=== PATIENT | female | born 1955 | race Caucasian/White ===

== ENCOUNTER → 2016-07-11 | Outpatient (CLI) | payer BC ==
--- NOTE | 2016-07-11 09:48 | CR ---
EXAMINATION: Two-view chest (PA and Lateral views). HISTORY: COPD. FINDINGS: The trachea is midline. The cardiomediastinal silhouette is within normal limits. No pulmonary infil trates, effusions or pneumothorax. There is a calcified granuloma within the left apex. There is mod erate hyperinflation and bibasilar scarring. Osseous structures appear unremarkable. IMPRESSION: No acute cardiopulmonary process.
== END | disposition home or self-care (01) ==
LOC: MW.CHFP 08:32
PROVIDERS: ATTEND Emergency Medicine
DX: J44.9 Chronic obstructive pulmonary disease, unspecified (principal); R31.9 Hematuria, unspecified
CPT/HCPCS: 71020; 71020-26; 81001

== ENCOUNTER → 2016-07-18 | Outpatient (CLI) | payer BC ==
[~2016-07-18] MED LIST: Iopamidol 755 MG/ML 500 ML Multipack Bottle IVPUSH STA
--- NOTE | 2016-07-18 11:56 | CT ---
CT of the abdomen and pelvis with contrast. HISTORY: Disorders of kidney TECHNIQUE: Axial CT images were obtained of the abdomen and pelvis following administration of 80 mL of Isovue-370 in the left ventricular fossa without complication. Coronal and sagittal reconstructi ons obtained. Comparison: CT dated 10/25/2013. FINDINGS: There is a spiculated 1.3 cm soft tissue nodule within the right lung base identified. This previous ly measured 0.8 x 0.6 cm. The liver, spleen, and pancreas appear normal. There is minimal nodular thickening of the left adren al gland. The gallbladder appears normal. There is no bulky retroperitoneal lymphadenopathy or abdom inal ascites. The kidneys enhance and function symmetrically without evidence of obstructive uropathy. There is a 1 x 1.4 cm nodule along the medial aspect of the left kidney, grossly unchanged in size and appearan ce. 3 mm nonobstructing stone within the midpole of the left kidney. The large and small bowel are normal in caliber without evidence of obstruction. No pericolonic infl ammation or stranding. Appendectomy. The urinary bladder appears normal. There is trace free sacral fluid, unchanged. Hysterectomy. No bulky pelvic lymphadenopathy. No suspicious osseous abnormalities identified. IMPRESSION: 1. There is an enlarging suspicious 1.3 cm spiculated soft tissue nodule within the right lower lobe . Tissue sampling is recommended. 2. Small nonobstructing left renal stone. 3. Stable soft tissue nodule within the mid pole of the left kidney.
== END ==
LOC: MW.DI 09:33
PROVIDERS: ATTEND Emergency Medicine
DX: N28.89 Other specified disorders of kidney and ureter (principal); N20.0 Calculus of kidney
CPT/HCPCS: 74177; Q9967

== ENCOUNTER 2017-04-20 12:24 | Inpatient (IN) | payer BC ==
[2017-04-20] MEDS ORDERED: Albuterol/Ipratropium 3.0-0.5 MG/3 ML Neb Soln NEB ONE ×3 (12:37→12:45)
[2017-04-20] MEDS ORDERED: methylPREDNISolone Sodium Succinate 125 MG/2 ML SDV IVPUSH ONE (12:37)
[2017-04-20] MEDS ORDERED: Sodium Chloride 0.9% 2.5 ML Syringe FLUSH PRN (12:38)
[2017-04-20] MEDS ORDERED: Sodium Chloride 0.9% 10 ML Syringe FLUSH PRN (12:38)
--- NOTE | 2017-04-20 12:45 | EDM.PDOC ---
ED HPI GENERAL MEDICAL PROBLEM - General Chief Complaint: Respiratory Problem Stated Complaint: HARD TIME BREATHING Time Seen by Provider: 04/20/17 12:34 Source of Information: Reports: Patient History Limitations: Reports: No Limitations - History of Present Illness INITIAL COMMENTS - FREE TEXT/NARRATIVE: History of present illness: []Patient has been short of breath since last night home O2. Shortness of breath is worsening she is unable to manage at home. Patient denies any fevers, chills has a chronic cough. Diagnosed with lung cancer and has had 4 rounds of chemotherapy. She has no history of blood clots in the past. Review of systems: As per history of present illness and below otherwise all systems reviewed and negative. Past medical history: As per history of present illness and as reviewed below otherwise noncontributory. Surgical history: As per history of present illness and as reviewed below otherwise noncontributory. Social history: No reported history of drug or alcohol abuse. Family history: As per history of present illness and as reviewed below otherwise noncontributory. Physical exam: General: Well developed, well nourished in mild respiratory distress HEENT: Atraumatic, normocephalic, pupils reactive, negative for conjunctival pallor or scleral icterus, mucous membranes moist, throat clear, neck supple, nontender, trachea midline. Lungs: Decreased breath sounds bilaterally Heart: S1S2, regular, negative for clicks, rubs, or JVD. Abdomen: Soft, nondistended, nontender. Negative for masses or hepatosplenomegaly. Negative for costovertebral tenderness. Pelvis: Stable nontender. Genitourinary: Deferred. Rectal: Deferred. Extremities: Atraumatic, negative for cords or calf pain. Neurovascular unremarkable. Neuro: Awake, alert, oriented. Cranial nerves II through XII unremarkable. Cerebellum unremarkable. Motor and sensory unremarkable throughout. Exam nonfocal. Diagnostics: []Chest x-ray shows COPD, CT chest negative for PE right middle lobe nodules, right middle lobe infiltrate and severe emphysema noted. Troponin and labs are negative Therapeutics: []Patient was given several nebs in the ED and Solu-Medrol and 10 year to have some difficulty breathing. Since vital signs remained stable. Impression: []COPD exacerbation, lung cancer, possible early pneumonia given labs are normal at this time Plan: []Admit for breathing treatments and observation Definitive disposition and diagnosis as appropriate pending reevaluation and review of above. right ribs Pain Score (Numeric/FACES): 5 - Related Data Allergies Allergy/AdvReac Type Severity Reaction Status Date / Time codeine Allergy Anaphylactic Verified 04/20/17 13:07 Shock Home Meds: Home Meds Cetirizine HCl [Zyrtec] 10 mg PO DAILY 08/02/13 [History] Albuterol Sulfate [Albuterol Sulfate] 0.083 ml PO DAILY 04/20/17 [History] Albuterol [Ventolin HFA] 108 mg PO DAILY 04/20/17 [History] Budesonide/Formoterol [Symbicort 160-4.5 MCG] 10.2 gm INH DAILY 04/20/17 [ History] Umeclidinium [place] [Incruse Ellipta*] 62.5 ml PO DAILY 04/20/17 [History] Social & Family History - Tobacco Use Years of Tobacco use: 45 - Alcohol Use Days Per Week of Alcohol Use: 0 - Recreational Drug Use Recreational Drug Use: No ED ROS GENERAL - Review of Systems Review Of Systems: See Below (See history of present illness) ED EXAM, GENERAL - Physical Exam Exam: See Below (See history of present illness) Course - Vital Signs Last Recorded V/S: Last Vital Signs Temp 98.7 F 04/20/17 15:31 Pulse 103 H 04/20/17 15:31 Resp 20 04/20/17 15:31 BP 148/91 H 04/20/17 15:31 Pulse Ox 98 04/20/17 15:31 - Orders/Labs/Meds Orders: Active Orders 24 hr Category Date Time Status EKG Documentation Completion [RC] STAT Care 04/20/17 12:38 Active RT Aerosol Therapy [RC] ASDIRECTED Care 04/20/17 12:37 Active RT Aerosol Therapy [RC] ASDIRECTED Care 04/20/17 12:44 Active RT Aerosol Therapy [RC] ASDIRECTED Care 04/20/17 12:45 Active Ang Chest [CT] Stat Exams 04/20/17 13:51 Taken Chest 1V Frontal [CR] Stat Exams 04/20/17 12:38 Taken CULTURE BLOOD [BC] Stat Lab 04/20/17 13:36 Received CULTURE BLOOD [BC] Stat Lab 04/20/17 13:47 Received Sodium Chloride 0.9% [Saline Flush] Med 04/20/17 12:38 Active 10 ml FLUSH ASDIRECTED PRN Sodium Chloride 0.9% [Saline Flush] Med 04/20/17 12:38 Active 2.5 ml FLUSH ASDIRECTED PRN Blood Culture x2 Reflex Set [OM.PC] Stat Ot 04/20/17 13:23 Ordered Saline Lock Insert [OM.PC] Stat Ot 04/20/17 12:38 Ordered Medication Orders Acetaminophen (Tylenol) 650 mg PO Q4H PRN PRN Reason: Pain (Mild 1-3)/fever Albuterol/Ipratropium (Duoneb 3.0-0.5 Mg/3 Ml) 3 ml NEB Q4HRRT PRN PRN Reason: Shortness Of Breath/wheezing Heparin Sodium (Porcine) (Heparin Sodium) 5,000 units SUBCUT Q12H [facility] Last Admin: 04/20/17 16:04 Dose: 5,000 units Lactated Ringer's (Ringers, Lactated) 1,000 mls @ 125 mls/hr IV ASDIRECTED [facility] Last Admin: 04/20/17 16:08 Dose: 125 mls/hr Levofloxacin/Dextrose 750 mg/ (Premix) 150 mls @ 100 mls/hr IV Q24H [facility] Last Admin: 04/20/17 16:05 Dose: 100 mls/hr Ibuprofen (Motrin) 400 mg PO Q6H PRN PRN Reason: Pain (mild 1-3) Methylprednisolone Sodium Succinate (Solu-Medrol) 60 mg IVPUSH Q6H [facility] Last Admin: 04/20/17 16:04 Dose: 60 mg Ondansetron HCl (Zofran Odt) 4 mg PO Q4H PRN PRN Reason: nausea, able to take PO Sodium Chloride (Saline Flush) 10 ml FLUSH ASDIRECTED PRN PRN Reason: Keep Vein Open Last Admin: 04/20/17 12:44 Dose: 10 ml Sodium Chloride (Saline Flush) 2.5 ml FLUSH ASDIRECTED PRN PRN Reason: Keep Vein Open Last Admin: 04/20/17 12:44 Dose: 2.5 ml Labs: Laboratory Tests 04/20/17 04/20/17 04/20/17 Range/Units 12:32 12:32 12:32 WBC 11.67 H (4.0-11.0) K/uL RBC 4.26 L (4.30-5.90) M/uL Hgb 12.9 (12.0-16.0) g/dL Hct 39.4 (36.0-46.0) % MCV 92.5 (80.0-98.0) fL MCH 30.3 (27.0-32.0) pg MCHC 32.7 (31.0-37.0) g/dL RDW Std Deviation 47.3 (28.0-62.0) fl RDW Coeff of Olga 14 (11.0-15.0) % Plt Count 320 (150-400) K/uL MPV 10.00 (7.40-12.00) fL Neut % (Auto) 71.4 (48.0-80.0) % Lymph % (Auto) 18.5 (16.0-40.0) % [place]oval % (Auto) 8.1 (0.0-15.0) % Eos % (Auto) 1.8 (0.0-7.0) % Baso % (Auto) 0.2 (0.0-1.5) % Neut # (Auto) 8.3 H (1.4-5.7) K/uL Lymph # (Auto) 2.2 (0.6-2.4) K/uL [place] # (Auto) 1.0 H (0.0-0.8) K/uL Eos # (Auto) 0.2 (0.0-0.7) K/uL Baso # (Auto) 0.0 (0.0-0.1) K/uL Nucleated RBC % 0.0 /100WBC Nucleated RBCs # 0 K/uL D-Dimer, Quantitative (0.0-0.52) mg/LFEU Lactate (0.20-2.00) mmol/L Sodium 140 (136-146) mmol/L Potassium 3.9 (3.5-5.1) mmol/L Chloride 103 (98-110) mmol/L Carbon Dioxide 27 (21-31) mmol/L BUN 14 (6.0-23.0) mg/dL Creatinine 0.7 (0.6-1.5) mg/dL Est Cr Clr Drug Dosing TNP Estimated GFR (MDRD) > 60.0 ml/min Glucose 110 (60-110) mg/dL Calcium 9.4 (8.8-10.8) mg/dL Magnesium 1.7 (1.5-2.3) mEq/L Total Bilirubin 0.6 (0.1-1.5) mg/dL AST 24 (5-40) IU/L ALT 27 (8-54) IU/L Alkaline Phosphatase 70 (40-150) Troponin I < 0.10 (0.0-0.29) NG/ML B-Natriuretic Peptide 21 (<100) PG/ML Total Protein 8.2 H (6.0-8.0) g/dL Albumin 4.4 (3.4-4.8) g/dL Globulin 3.8 H (2.0-3.5) g/dL Albumin/Globulin Ratio 1.2 L (1.3-2.8) 04/20/17 04/20/17 Range/Units 12:32 12:32 WBC (4.0-11.0) K/uL RBC (4.30-5.90) M/uL Hgb (12.0-16.0) g/dL Hct (36.0-46.0) % MCV (80.0-98.0) fL MCH (27.0-32.0) pg MCHC (31.0-37.0) g/dL RDW Std Deviation (28.0-62.0) fl RDW Coeff of Olga (11.0-15.0) % Plt Count (150-400) K/uL MPV (7.40-12.00) fL Neut % (Auto) (48.0-80.0) % Lymph % (Auto) (16.0-40.0) % [place] % (Auto) (0.0-15.0) % Eos % (Auto) (0.0-7.0) % Baso % (Auto) (0.0-1.5) % Neut # (Auto) (1.4-5.7) K/uL Lymph # (Auto) (0.6-2.4) K/uL [place] # (Auto) (0.0-0.8) K/uL Eos # (Auto) (0.0-0.7) K/uL Baso # (Auto) (0.0-0.1) K/uL Nucleated RBC % /100WBC Nucleated RBCs # K/uL D-Dimer, Quantitative 1.48 H (0.0-0.52) mg/LFEU Lactate 1.4 (0.20-2.00) mmol/L Sodium (136-146) mmol/L Potassium (3.5-5.1) mmol/L Chloride (98-110) mmol/L Carbon Dioxide (21-31) mmol/L BUN (6.0-23.0) mg/dL Creatinine (0.6-1.5) mg/dL Est Cr Clr Drug Dosing Estimated GFR (MDRD) ml/min Glucose (60-110) mg/dL Calcium (8.8-10.8) mg/dL Magnesium (1.5-2.3) mEq/L Total Bilirubin (0.1-1.5) mg/dL AST (5-40) IU/L ALT (8-54) IU/L Alkaline Phosphatase (40-150) Troponin I (0.0-0.29) NG/ML B-Natriuretic Peptide (<100) PG/ML Total Protein (6.0-8.0) g/dL Albumin (3.4-4.8) g/dL Globulin (2.0-3.5) g/dL Albumin/Globulin Ratio (1.3-2.8) Meds: Medications Generic Name Dose Route Start Last Admin Trade Name Freq PRN Reason Stop Dose Admin Acetaminophen 650 mg 04/20/17 15:30 Tylenol PO Q4H PRN Pain (Mild 1-3)/fever Albuterol/Ipratropium 3 ml 04/20/17 15:30 Duoneb 3.0-0.5 Mg/3 Ml NEB Q4HRRT PRN Shortness Of Breath/wheezing Heparin Sodium (Porcine) 5,000 units 04/20/17 15:30 04/20/17 16:04 Heparin Sodium SUBCUT 5,000 units Q12H JENNY Administration Lactated Ringer's 1,000 mls @ 125 mls/hr 04/20/17 15:30 04/20/17 16:08 Ringers, Lactated IV 125 mls/hr ASDIRECTED JENNY Administration Levofloxacin/Dextrose 750 mg/ 150 mls @ 100 mls/hr 04/20/17 15:30 04/20/17 16 :05 Premix IV 100 mls/hr Q24H JENNY Administration Ibuprofen 400 mg 04/20/17 15:30 Motrin PO Q6H PRN Pain (mild 1-3) Methylprednisolone Sodium Succinate 60 mg 04/20/17 15:30 04/20/17 16:04 Solu-Medrol IVPUSH 60 mg Q6H JENNY Administration Ondansetron HCl 4 mg 04/20/17 15:30 Zofran Odt PO Q4H PRN nausea, able to take PO Sodium Chloride 10 ml 04/20/17 12:38 04/20/17 12:44 Saline Flush FLUSH 10 ml ASDIRECTED PRN Administration Keep Vein Open Sodium Chloride 2.5 ml 04/20/17 12:38 04/20/17 12:44 Saline Flush FLUSH 2.5 ml ASDIRECTED PRN Administration Keep Vein Open Discontinued Medications Generic Name Dose Route Start Last Admin Trade Name Freq PRN Reason Stop Dose Admin Albuterol/Ipratropium 3 ml 04/20/17 12:37 04/20/17 12:41 Duoneb 3.0-0.5 Mg/3 Ml NEB 04/20/17 12:38 3 ml ONETIME ONE Administration Albuterol/Ipratropium 3 ml 04/20/17 12:44 04/20/17 12:47 Duoneb 3.0-0.5 Mg/3 Ml NEB 04/20/17 12:45 3 ml ONETIME ONE Administration Albuterol/Ipratropium 3 ml 04/20/17 12:45 04/20/17 13:06 Duoneb 3.0-0.5 Mg/3 Ml NEB 04/20/17 12:46 3 ml ONETIME ONE Administration Iopamidol 50 ml 04/20/17 16:09 04/20/17 16:10 Isovue-370 (76%) IV 04/20/17 16:10 50 ml ONETIME ONE Administration Methylprednisolone Sodium Succinate 125 mg 04/20/17 12:37 04/20/17 12:44 Solu-Medrol IVPUSH 04/20/17 12:38 125 mg ONETIME ONE Administration Departure - Departure Time of Disposition: 17:25 Disposition: Home, Self-Care 01 Condition: Good Clinical Impression: COPD exacerbation - Discharge Information - My Orders Last 24 Hours: My Active Orders 04/20/17 12:37 RT Aerosol Therapy [RC] ASDIRECTED 04/20/17 12:38 EKG Documentation Completion [RC] STAT Chest 1V Frontal [CR] Stat Sodium Chloride 0.9% [Saline Flush] 10 ml FLUSH ASDIRECTED PRN Sodium Chloride 0.9% [Saline Flush] 2.5 ml FLUSH ASDIRECTED PRN Saline Lock Insert [OM.PC] Stat 04/20/17 12:44 RT Aerosol Therapy [RC] ASDIRECTED 04/20/17 12:45 RT Aerosol Therapy [RC] ASDIRECTED 04/20/17 13:23 Blood Culture x2 Reflex Set [OM.PC] Stat 04/20/17 13:36 CULTURE BLOOD [BC] Stat 04/20/17 13:47 CULTURE BLOOD [BC] Stat 04/20/17 13:51 Ang Chest [CT] Stat - Assessment/Plan Last 24 Hours: My Active Orders 04/20/17 12:37 RT Aerosol Therapy [RC] ASDIRECTED 04/20/17 12:38 EKG Documentation Completion [RC] STAT Chest 1V Frontal [CR] Stat Sodium Chloride 0.9% [Saline Flush] 10 ml FLUSH ASDIRECTED PRN Sodium Chloride 0.9% [Saline Flush] 2.5 ml FLUSH ASDIRECTED PRN Saline Lock Insert [OM.PC] Stat 04/20/17 12:44 RT Aerosol Therapy [RC] ASDIRECTED 04/20/17 12:45 RT Aerosol Therapy [RC] ASDIRECTED 04/20/17 13:23 Blood Culture x2 Reflex Set [OM.PC] Stat 04/20/17 13:36 CULTURE BLOOD [BC] Stat 04/20/17 13:47 CULTURE BLOOD [BC] Stat 04/20/17 13:51 Ang Chest [CT] Stat
[2017-04-20 13:07] LABS: CHLORIDE,CL 103 mmol/L (98-110); SODIUM,NA 140 mmol/L (136-146)
--- NOTE | 2017-04-20 15:19 | PCM.HP ---
H&P History of Present Illness - General Date of Service: 04/20/17 Admit Problem/Dx: Pneumonia Source of Information: Patient History Limitations: Reports: No Limitations - History of Present Illness Initial Comments - Free Text/Narative: 61-year-old female presenting to emergency department with chief complaint of increasing shortness of breath 1 week with past medical history of COPD on home oxygen 2 L and lung CA. Patient states that for the past week she has had increased shortness of breath. She does use oxygen at home and was finding that she was needing more to feel not winded. States that she has felt some fever and chills but denies any nausea, vomiting, diarrhea. She does have a history of COPD and lung CA. States that she has had radiation for the Lung CA but secondary to her emphysematous changes they have not been able to do a biopsy to get a proper tissue diagnosis. She also has been recently ill with influenza which she was treated for 2 weeks ago. She currently denies any chest pain, palpitations, syncopal episodes, or focal neurologic deficits. Emergency department she had mild leukocytosis of 11.7 K, elevated d-dimer at 1.48 most likely secondary to lung cancer. CTA was performed and was found to be negative for PE. Lactate and CMP were unremarkable. Troponin was negative. EKG showed no acute scigns of ischemia. Chest x-ray revealed patchy airspace opacities in the right lower lobe possibly representing a pneumonia. In the emergency department she was treated with duo nebs and IV Solu-Medrol 125. She was satting 94% on 4 L. She normally uses 2 L at home. CTA of Chest 04/20/[address] evidence of acute or chronic pulmonary thromboembolism. Consolidation right lower lobe; rule out pneumonic infiltrates. This need to be followed until it completely clears to rule out underlying malignancy. 2.7 x 1.4 cm spiculated nodular density upper lobe left lung; malignancy need to be considered and ruled out. No other abnormal intra pulmonary nodular densities in the left lung. 8 mm pleural-based noncalcified nodular density right middle lobe as noted on slice 64 of series 1502 and an 8 mm nodular density lateral segment right middle lobe on slice 65 of series 1502. Diffuse pulmonary emphysema with bullous disease. Infiltrates lateral segment right middle lobe. No abnormal mediastinal or hilar lymphadenopathy. Normal size cardiac silhouette without any evidence of pericardial effusion. Limited CT through the upper abdomen is unremarkable. Impression: Pneumonic infiltrates right lower lobe; area of spiculated soft tissue measuring 4.4 x 2.5 cm in the middle of the infiltrate; close followup is needed until it completely clears to rule out underlying malignancy. 1. 2.7 x 1.4 cm spiculated nodular density left upper lung; rule out malignancy ; close followup and / or further imaging with PET CT suggested. 2. Sub cm spiculated nodules right middle lobe; close followup is needed. 3. Infiltrates medial segment right middle lobe. 4. Severe pulmonary emphysema. Patient does have a history of anaphylactic reaction to codeine. Patient will be admitted for hypoxia secondary to pneumonia and COPD exacerbation. right ribs Pain Score (Numeric/FACES): 6 - Related Data Allergies/Adverse Reactions: Allergies Allergy/AdvReac Type Severity Reaction Status Date / Time codeine Allergy Anaphylactic Verified 04/20/17 13:07 Shock Home Medications: Home Meds Cetirizine HCl [Zyrtec] 10 mg PO DAILY 08/02/13 [History] Albuterol Sulfate [Albuterol Sulfate] 0.083 ml PO DAILY 04/20/17 [History] Albuterol [Ventolin HFA] 108 mg PO DAILY 04/20/17 [History] Budesonide/Formoterol [Symbicort 160-4.5 MCG] 10.2 gm INH DAILY 04/20/17 [ History] Umeclidinium Mobridge [Incruse Ellipta*] 62.5 ml PO DAILY 04/20/17 [History] Past Medical History HEENT History: Reports: None Cardiovascular History: Reports: None Respiratory History: Reports: COPD, Other (See Below) Other Respiratory History: Severe Emphysema Gastrointestinal History: Reports: None Genitourinary History: Reports: None DIETETIC TECH History: Reports: None Musculoskeletal History: Reports: Arthritis Neurological History: Reports: None Psychiatric History: Reports: None Endocrine/Metabolic History: Reports: Osteopenia Hematologic History: Reports: None Immunologic History: Reports: None Oncologic (Cancer) History: Reports: Lung Dermatologic History: Reports: None - Infectious Disease History Infectious Disease History: Reports: Chicken Pox, Measles, Mumps - Past Surgical History Head Surgeries/Procedures: Reports: None HEENT Surgical History: Reports: None Cardiovascular Surgical History: Reports: None Respiratory Surgical History: Reports: None GI Surgical History: Reports: None Female Surgical History: Reports: None Endocrine Surgical History: Reports: None Neurological Surgical History: Reports: None Musculoskeletal Surgical History: Reports: None Oncologic Surgical History: Reports: None Dermatological Surgical History: Reports: None Social & Family History - Family History Family Medical History: Noncontributory - Tobacco Use Smoking Status *Q: Former Smoker Years of Tobacco use: 45 Used Tobacco, but Quit: No - Caffeine Use Caffeine Use: Reports: Coffee - Alcohol Use Days Per Week of Alcohol Use: 0 - Recreational Drug Use Recreational Drug Use: No H&P Review of Systems - Review of Systems: Review Of Systems: See Below General: Reports: Fever, Chills, Fatigue HEENT: Denies: Hearing Changes, Sore Throat Pulmonary: Reports: Shortness of Breath, Wheezing, Pleuritic Chest Pain, Cough, Sputum Cardiovascular: Denies: Chest Pain, Palpitations, Edema Gastrointestinal: Denies: Abdominal Pain, Black Stool, Bloody Stool, Nausea, Vomiting Genitourinary: Denies: Dysuria, Hematuria Musculoskeletal: Denies: Neck Pain, Leg Pain Skin: Denies: Cyanosis Psychiatric: Denies: Confusion, Depression Neurological: Denies: Confusion, Dizziness, Headache Hematologic/Lymphatic: Denies: Anemia Immunologic: Reports: Anaphylaxis (To Codeine) Exam - Exam Exam: See Below - Vital Signs Vital Signs: Last Vital Signs Temp 99.7 F 04/20/17 13:09 Pulse 102 H 04/20/17 14:15 Resp 26 H 04/20/17 13:09 BP 109/66 04/20/17 14:15 Pulse Ox 94 L 04/20/17 14:15 Weight: 71.5 kg - Exam Quality Assessment: Supplemental Oxygen, DVT Prophylaxis General: Alert, Oriented, Cooperative HEENT: Conjunctiva Clear, Hearing Intact, Mucosa Moist & [place], Posterior Pharynx Clear. No: EOMI Neck: Supple, Trachea Midline Lungs: Decreased Breath Sounds, Wheezing Cardiovascular: Regular Rate, Regular Rhythm, Normal S1, Normal S2 GI/Abdominal Exam: Normal Bowel Sounds, Soft, Non-Tender, No Organomegaly, No Distention (Female) Exam: Deferred Rectal (Female) Exam: Deferred Back Exam: Normal Inspection, Full Range of Motion, NT Extremities: Normal Inspection, Normal Range of Motion, Non-Tender, No Pedal Edema, Normal Capillary Refill Skin: Warm, Dry, Intact Neurological: Cranial Nerves Intact, Reflexes Equal Bilateral Neuro Extensive - Mental Status: Alert, Oriented x3, Normal Mood/Affect, Normal Cognition Neuro Extensive - Motor, Sensory, Reflexes: CN II-XII Intact, Normal Gait, Normal Reflexes Psychiatric: Alert, Normal Affect, Normal Mood - Patient Data Lab Results Last 24 hrs: Laboratory Results - last 24 hr 04/20/17 04/20/17 04/20/17 Range/Units 12:32 12:32 12:32 WBC 11.67 H (4.0-11.0) K/uL RBC 4.26 L (4.30-5.90) M/uL Hgb 12.9 (12.0-16.0) g/dL Hct 39.4 (36.0-46.0) % MCV 92.5 (80.0-98.0) fL MCH 30.3 (27.0-32.0) pg MCHC 32.7 (31.0-37.0) g/dL RDW Std Deviation 47.3 (28.0-62.0) fl RDW Coeff of Olga 14 (11.0-15.0) % Plt Count 320 (150-400) K/uL MPV 10.00 (7.40-12.00) fL Neut % (Auto) 71.4 (48.0-80.0) % Lymph % (Auto) 18.5 (16.0-40.0) % [place] % (Auto) 8.1 (0.0-15.0) % Eos % (Auto) 1.8 (0.0-7.0) % Baso % (Auto) 0.2 (0.0-1.5) % Neut # (Auto) 8.3 H (1.4-5.7) K/uL Lymph # (Auto) 2.2 (0.6-2.4) K/uL [place] # (Auto) 1.0 H (0.0-0.8) K/uL Eos # (Auto) 0.2 (0.0-0.7) K/uL Baso # (Auto) 0.0 (0.0-0.1) K/uL Nucleated RBC % 0.0 /100WBC Nucleated RBCs # 0 K/uL D-Dimer, Quantitative (0.0-0.52) mg/LFEU Lactate (0.20-2.00) mmol/L Sodium 140 (136-146) mmol/L Potassium 3.9 (3.5-5.1) mmol/L Chloride 103 (98-110) mmol/L Carbon Dioxide 27 (21-31) mmol/L BUN 14 (6.0-23.0) mg/dL Creatinine 0.7 (0.6-1.5) mg/dL Est Cr Clr Drug Dosing TNP Estimated GFR (MDRD) > 60.0 ml/min Glucose 110 (60-110) mg/dL Calcium 9.4 (8.8-10.8) mg/dL Magnesium 1.7 (1.5-2.3) mEq/L Total Bilirubin 0.6 (0.1-1.5) mg/dL AST 24 (5-40) IU/L ALT 27 (8-54) IU/L Alkaline Phosphatase 70 (40-150) Troponin I < 0.10 (0.0-0.29) NG/ML B-Natriuretic Peptide 21 (<100) PG/ML Total Protein 8.2 H (6.0-8.0) g/dL Albumin 4.4 (3.4-4.8) g/dL Globulin 3.8 H (2.0-3.5) g/dL Albumin/Globulin Ratio 1.2 L (1.3-2.8) 04/20/17 04/20/17 Range/Units 12:32 12:32 WBC (4.0-11.0) K/uL RBC (4.30-5.90) M/uL Hgb (12.0-16.0) g/dL Hct (36.0-46.0) % MCV (80.0-98.0) fL MCH (27.0-32.0) pg MCHC (31.0-37.0) g/dL RDW Std Deviation (28.0-62.0) fl RDW Coeff of Olga (11.0-15.0) % Plt Count (150-400) K/uL MPV (7.40-12.00) fL Neut % (Auto) (48.0-80.0) % Lymph % (Auto) (16.0-40.0) % [place] % (Auto) (0.0-15.0) % Eos % (Auto) (0.0-7.0) % Baso % (Auto) (0.0-1.5) % Neut # (Auto) (1.4-5.7) K/uL Lymph # (Auto) (0.6-2.4) K/uL [place] # (Auto) (0.0-0.8) K/uL Eos # (Auto) (0.0-0.7) K/uL Baso # (Auto) (0.0-0.1) K/uL Nucleated RBC % /100WBC Nucleated RBCs # K/uL D-Dimer, Quantitative 1.48 H (0.0-0.52) mg/LFEU Lactate 1.4 (0.20-2.00) mmol/L Sodium (136-146) mmol/L Potassium (3.5-5.1) mmol/L Chloride (98-110) mmol/L Carbon Dioxide (21-31) mmol/L BUN (6.0-23.0) mg/dL Creatinine (0.6-1.5) mg/dL Est Cr Clr Drug Dosing Estimated GFR (MDRD) ml/min Glucose (60-110) mg/dL Calcium (8.8-10.8) mg/dL Magnesium (1.5-2.3) mEq/L Total Bilirubin (0.1-1.5) mg/dL AST (5-40) IU/L ALT (8-54) IU/L Alkaline Phosphatase (40-150) Troponin I (0.0-0.29) NG/ML B-Natriuretic Peptide (<100) PG/ML Total Protein (6.0-8.0) g/dL Albumin (3.4-4.8) g/dL Globulin (2.0-3.5) g/dL Albumin/Globulin Ratio (1.3-2.8) Result Diagrams: 04/20/17 12:32 04/20/17 12:32 *Q Meaningful Use (ADM) - VTE *Q VTE Criteria *Q: - Stroke *Q Stroke Criteria *Q: - AMI *Q AMI Criteria *Q: - Problem List (1) Community acquired pneumonia SNOMED Code(s): 736716068 ICD Code: J18.9 - PNEUMONIA, UNSPECIFIED ORGANISM Status: Suspected Priority: High Current Visit: Yes Qualifiers: Laterality: right Lung location: lower lobe of lung Qualified Code(s): J18.1 - Lobar pneumonia, unspecified organism (2) COPD with exacerbation SNOMED Code(s): 027267160 ICD Code: J44.1 - CHRONIC OBSTRUCTIVE PULMONARY DISEASE W (ACUTE) EXACERBATION Status: Acute Priority: High Current Visit: Yes (3) History of lung cancer SNOMED Code(s): 002367282 ICD Code: Z85.118 - PERSONAL HISTORY OF MALIGNANT NEOPLASM OF BRONCHUS AND LUNG Status: Chronic Priority: High Current Visit: Yes Problem List Initiated/Reviewed/Updated: Yes Orders Last 24hrs: Active Orders 24 hr Category Date Time Status EKG Documentation Completion [RC] STAT Care 04/20/17 12:38 Active RT Aerosol Therapy [RC] ASDIRECTED Care 04/20/17 12:37 Active RT Aerosol Therapy [RC] ASDIRECTED Care 04/20/17 12:44 Active RT Aerosol Therapy [RC] ASDIRECTED Care 04/20/17 12:45 Active Ang Chest [CT] Stat Exams 04/20/17 13:51 Taken Chest 1V Frontal [CR] Stat Exams 04/20/17 12:38 Taken CULTURE BLOOD [BC] Stat Lab 04/20/17 13:36 Received CULTURE BLOOD [BC] Stat Lab 04/20/17 13:47 Received INFLUENZA A+B AG SCREEN [RM] Stat Lab 04/20/17 13:25 Uncollected Sodium Chloride 0.9% [Saline Flush] Med 04/20/17 12:38 Active 10 ml FLUSH ASDIRECTED PRN Sodium Chloride 0.9% [Saline Flush] Med 04/20/17 12:38 Active 2.5 ml FLUSH ASDIRECTED PRN Blood Culture x2 Reflex Set [OM.PC] Stat Oth 04/20/17 13:23 Ordered Saline Lock Insert [OM.PC] Stat Oth 04/20/17 12:38 Ordered Medication Orders Sodium Chloride (Saline Flush) 10 ml FLUSH ASDIRECTED PRN PRN Reason: Keep Vein Open Last Admin: 04/20/17 12:44 Dose: 10 ml Sodium Chloride (Saline Flush) 2.5 ml FLUSH ASDIRECTED PRN PRN Reason: Keep Vein Open Last Admin: 04/20/17 12:44 Dose: 2.5 ml Assessment/Plan Comment:: 61-year-old female admitted hypoxia secondary to suspected pneumonia and COPD exacerbation with history of COPD and lung CA. Hypoxia: Most likely secondary to combined effect of pneumonia and COPD exacerbation. Will treat with Levaquin IV every 24, Solu-Medrol 60 mg every 6 hours, and duo nebs. Will transition to oral as soon as patient's clinical status improves. COPD: As above patient is on multiple medications and has history of severe emphysematous changes. Will monitor closely. She is on 2 L home oxygen normally. Currently sating 94% on 4 L. she quit smoking in 2008. History of lung CA: As per patient she was treated with radiation but they were unable to do a biopsy secondary to "small size" of mass as well as worry that they would significantly impair her lung function due to her severe emphysema. CTA finding below verifing suspected lung CA 04/20/17. 1. 2.7 x 1.4 cm spiculated nodular density left upper lung; rule out malignancy ; close followup and / or further imaging with PET CT suggested. 2. Sub cm spiculated nodules right middle lobe; close followup is needed. 3. Infiltrates medial segment right middle lobe. 4. Severe pulmonary emphysema. VTE proph: Heparin, SCD Dispo: 2-3 days pending.
[2017-04-20] MEDS ORDERED: Ibuprofen 400 MG Tab PO PRN (15:30)
[2017-04-20] MEDS ORDERED: Acetaminophen 325 MG Tab PO PRN (15:30)
[2017-04-20] MEDS ORDERED: Ondansetron 4 MG Tab.DIS PO PRN (15:30)
[2017-04-20] MEDS ORDERED: Albuterol/Ipratropium 3.0-0.5 MG/3 ML Neb Soln NEB PRN (15:30)
[2017-04-20] MEDS: methylPREDNISolone Sodium Succinate 40 MG/1 ML SDV IVPUSH SCH ×2 (16:04→21:35)
[2017-04-20] MEDS: Heparin Sodium 5,000 Units/ML Vial SUBCUT SCH (16:04)
[2017-04-20] MEDS: Levofloxacin/Dextrose 5%-Water 750 MG in Premix Bag 1 BAG IV SCH (16:05)
[2017-04-20] MEDS: Lactated Ringers 1,000 ML IV SCH (16:08)
[2017-04-20] MEDS ORDERED: Iopamidol 755 MG/ML 50 ML Bottle IV ONE (16:09)
[2017-04-21] MEDS: Lactated Ringers 1,000 ML IV SCH ×2 (01:33→09:42)
[2017-04-21] MEDS: methylPREDNISolone Sodium Succinate 40 MG/1 ML SDV IVPUSH SCH ×4 (04:04→20:32)
[2017-04-21] MEDS: Heparin Sodium 5,000 Units/ML Vial SUBCUT SCH ×2 (04:06→15:29)
[2017-04-21 06:06] LABS: CHLORIDE,CL 108 mmol/L (98-110); SODIUM,NA 142 mmol/L (136-146)
--- NOTE | 2017-04-21 08:18 | PCM.PN ---
- General Info Date of Service: 04/21/17 Admission Dx/Problem (Free Text): Pneumonia Subjective Update: Doing better this morning but still sob with any ambulation. Sating 94 on 3L. Home O2 is normally at 3 L. Appetite is good. Did not sleep well overnight secondary to noise and hospital commotion. Functional Status: Reports: Pain Controlled, Tolerating Diet, Ambulating, Urinating - Review of Systems General: Denies: Fever, Weakness, Fatigue HEENT: Denies: Dysphasia, Headaches Pulmonary: Reports: Shortness of Breath, Cough, Wheezing. Denies: Sputum Cardiovascular: Denies: Chest Pain, Palpitations Gastrointestinal: Denies: Abdominal Pain, Constipation Genitourinary: Denies: Dysuria, Hematuria Musculoskeletal: Denies: Neck Pain, Leg Pain Skin: Denies: Cyanosis Neurological: Denies: Confusion, Dizziness, Headache Psychiatric: Denies: Confusion - Patient Data Vitals - Most Recent: Last Vital Signs Temp 98.8 F 04/21/17 03:00 Pulse 84 04/21/17 03:00 Resp 18 04/21/17 03:00 BP 97/60 04/21/17 03:00 Pulse Ox 96 04/21/17 03:00 Weight - Most Recent: 71.5 kg I&O - Last 24 Hours: Intake & Output 04/20/17 04/21/17 04/21/17 22:59 06:59 14:59 Intake Total 150 3250 Output Total 2850 Balance 150 400 Lab Results Last 24 Hours: Laboratory Results - last 24 hr 04/21/17 04/21/17 Range/Units 05:20 05:20 WBC 8.02 (4.0-11.0) K/uL RBC 3.72 L (4.30-5.90) M/uL Hgb 11.1 L (12.0-16.0) g/dL Hct 34.1 L (36.0-46.0) % MCV 91.7 (80.0-98.0) fL MCH 29.8 (27.0-32.0) pg MCHC 32.6 (31.0-37.0) g/dL RDW Std Deviation 45.5 (28.0-62.0) fl RDW Coeff of Olga 14 (11.0-15.0) % Plt Count 297 (150-400) K/uL MPV 9.70 (7.40-12.00) fL Neut % (Auto) 90.4 H (48.0-80.0) % Lymph % (Auto) 8.0 L (16.0-40.0) % [place] % (Auto) 1.5 (0.0-15.0) % Eos % (Auto) 0.0 (0.0-7.0) % Baso % (Auto) 0.1 (0.0-1.5) % Neut # (Auto) 7.3 H (1.4-5.7) K/uL Lymph # (Auto) 0.6 (0.6-2.4) K/uL [place] # (Auto) 0.1 (0.0-0.8) K/uL Eos # (Auto) 0.0 (0.0-0.7) K/uL Baso # (Auto) 0.0 (0.0-0.1) K/uL Nucleated RBC % 0.0 /100WBC Nucleated RBCs # 0 K/uL Sodium 142 (136-146) mmol/L Potassium 4.4 (3.5-5.1) mmol/L Chloride 108 (98-110) mmol/L Carbon Dioxide 26 (21-31) mmol/L BUN 9 (6.0-23.0) mg/dL Creatinine 0.6 (0.6-1.5) mg/dL Est Cr Clr Drug Dosing 93.34 mL/min Estimated GFR (MDRD) > 60.0 ml/min Glucose 163 H (60-110) mg/dL Calcium 9.1 (8.8-10.8) mg/dL Magnesium 1.7 (1.5-2.3) mEq/L Filippo Results Last 24 Hours: Microbiology 04/20/17 16:35 Influenza Type A Antigen Screen - Final Nasopharyngeal Swab NEGATIVE INFLUENZA A VIRUS AG Influenza Type B Antigen Screen - Final NEGATIVE INFLUENZA B VIRUS AG Med Orders - Current: Current Medications Acetaminophen (Tylenol) 650 mg PO Q4H PRN PRN Reason: Pain (Mild 1-3)/fever Albuterol/Ipratropium (Duoneb 3.0-0.5 Mg/3 Ml) 3 ml NEB Q4HRRT PRN PRN Reason: Shortness Of Breath/wheezing Heparin Sodium (Porcine) (Heparin Sodium) 5,000 units SUBCUT Q12H [facility] Last Admin: 04/21/17 04:06 Dose: 5,000 units Lactated Ringer's (Ringers, Lactated) 1,000 mls @ 125 mls/hr IV ASDIRECTED [facility] Last Admin: 04/21/17 01:33 Dose: 125 mls/hr Levofloxacin/Dextrose 750 mg/ (Premix) 150 mls @ 100 mls/hr IV Q24H [facility] Last Admin: 04/20/17 16:05 Dose: 100 mls/hr Ibuprofen (Motrin) 400 mg PO Q6H PRN PRN Reason: Pain (mild 1-3) Methylprednisolone Sodium Succinate (Solu-Medrol) 60 mg IVPUSH Q6H [facility] Last Admin: 04/21/17 04:04 Dose: 60 mg Ondansetron HCl (Zofran Odt) 4 mg PO Q4H PRN PRN Reason: nausea, able to take PO Sodium Chloride (Saline Flush) 10 ml FLUSH ASDIRECTED PRN PRN Reason: Keep Vein Open Last Admin: 04/20/17 12:44 Dose: 10 ml Sodium Chloride (Saline Flush) 2.5 ml FLUSH ASDIRECTED PRN PRN Reason: Keep Vein Open Last Admin: 04/20/17 12:44 Dose: 2.5 ml Discontinued Medications Albuterol/Ipratropium (Duoneb 3.0-0.5 Mg/3 Ml) 3 ml NEB ONETIME ONE Stop: 04/20/17 12:38 Last Admin: 04/20/17 12:41 Dose: 3 ml Albuterol/Ipratropium (Duoneb 3.0-0.5 Mg/3 Ml) 3 ml NEB ONETIME ONE Stop: 04/20/17 12:45 Last Admin: 04/20/17 12:47 Dose: 3 ml Albuterol/Ipratropium (Duoneb 3.0-0.5 Mg/3 Ml) 3 ml NEB ONETIME ONE Stop: 04/20/17 12:46 Last Admin: 04/20/17 13:06 Dose: 3 ml Iopamidol (Isovue-370 (76%)) 50 ml IV ONETIME ONE Stop: 04/20/17 16:10 Last Admin: 04/20/17 16:10 Dose: 50 ml Methylprednisolone Sodium Succinate (Solu-Medrol) 125 mg IVPUSH ONETIME ONE Stop: 04/20/17 12:38 Last Admin: 04/20/17 12:44 Dose: 125 mg - Exam Quality Assessment: Supplemental Oxygen, DVT Prophylaxis General: Alert, Oriented, Cooperative, No Acute Distress HEENT: Pupils Equal, Pupils Reactive, EOMI, Mucous Membr. Moist/[place] Neck: Supple, Trachea Midline Lungs: Decreased Breath Sounds, Wheezing Cardiovascular: Regular Rate, Regular Rhythm GI/Abdominal Exam: Normal Bowel Sounds, Soft, Non-Tender, No Organomegaly, No Distention (Female) Exam: Deferred Back Exam: Normal Inspection, Full Range of Motion Extremities: Normal Inspection, Non-Tender, No Pedal Edema, Normal Capillary Refill Peripheral Pulses: 2+: Radial (L), Radial (R), Posterior Tibial (L), Posterior Tibial (R), Dorsalis Pedis (L), Dorsalis Pedis (R) Skin: Warm, Dry, Intact Neurological: No New Focal Deficit Psy/Mental Status: Alert, Normal Affect, Normal Mood - Problem List & Annotations (1) Community acquired pneumonia SNOMED Code(s): 753013605 Code(s): J18.9 - PNEUMONIA, UNSPECIFIED ORGANISM Status: Suspected Priority: High Current Visit: Yes Qualifiers: Laterality: right Lung location: lower lobe of lung Qualified Code(s): J18.1 - Lobar pneumonia, unspecified organism (2) COPD with exacerbation SNOMED Code(s): 001495179 Code(s): J44.1 - CHRONIC OBSTRUCTIVE PULMONARY DISEASE W (ACUTE) EXACERBATION Status: Acute Priority: High Current Visit: Yes (3) History of lung cancer SNOMED Code(s): 233385471 Code(s): Z85.118 - PERSONAL HISTORY OF MALIGNANT NEOPLASM OF BRONCHUS AND LUNG Status: Chronic Priority: Medium Current Visit: Yes - Problem List Review Problem List Initiated/Reviewed/Updated: Yes - My Orders Last 24 Hours: My Active Orders 04/20/17 15:30 Up With Assistance [RC] ASDIRECTED Acetaminophen [Tylenol] 650 mg PO Q4H PRN Albuterol/Ipratropium [DuoNeb 3.0-0.5 MG/3 ML] 3 ml NEB Q4HRRT PRN Heparin Sodium 5,000 units SUBCUT Q12H Ibuprofen [Motrin] 400 mg PO Q6H PRN Lactated Ringers [Ringers, Lactated] 1,000 ml IV ASDIRECTED Levofloxacin/Dextrose 5%-Water [Levaquin in D5W 750 MG/150 ML] 750 mg Premix Bag 1 bag IV Q24H Ondansetron [Zofran ODT] 4 mg PO Q4H PRN methylPREDNISolone Sod Succ [Solu-MEDROL] 60 mg IVPUSH Q6H Resuscitation Status Routine 04/20/17 15:31 Patient Status [ADT] Routine Oxygen Therapy [RC] PRN Vital Signs [RC] Q4H 04/20/17 15:33 Antiembolic Devices [RC] PER UNIT ROUTINE Sequential Compression Device [OM.PC] Per Unit Routine 04/20/17 15:35 RT Aerosol Therapy [RC] ASDIRECTED 04/20/17 18:59 CULTURE SPUTUM + SMEAR [RM] Routine 04/20/17 Dinner Regular Diet [DIET] 04/22/17 05:11 BASIC METABOLIC PANEL,BMP [CHEM] AM CBC WITH AUTO DIFF [HEME] AM 04/23/17 05:11 BASIC METABOLIC PANEL,BMP [CHEM] AM CBC WITH AUTO DIFF [HEME] AM 04/24/17 05:11 BASIC METABOLIC PANEL,BMP [CHEM] AM CBC WITH AUTO DIFF [HEME] AM - Plan Plan:: 61-year-old female admitted hypoxia secondary to suspected pneumonia and COPD exacerbation with history of COPD and lung CA. Hypoxia: Improved with solumedrol and Levaquin which we will continue. Levaquin day 2 for CAP. Home oxygen is normally 2L and still requiring 3 L here overnight. Will cont. to monitor and plan for possible d/c tommorrow with oral steriods and Levaquin. COPD: Exacerbation improving cont. solumedrol. Still wheezing and tight on exam. She is on 2 L home oxygen normally. Currently sating 94% on 3 L. History of lung CA: See's Dr. Ash as PCP and pulmonology in [place] in May. They're both aware and we will need to make sure they has seen these new CT findings. According to patient and family the lung mass was much larger than the current 2.7 x 1.4 cm finding seen on CTA. CTA finding below verifing suspected lung CA 04/20/17. 1. 2.7 x 1.4 cm spiculated nodular density left upper lung; rule out malignancy ; close followup and / or further imaging with PET CT suggested. 2. Sub cm spiculated nodules right middle lobe; close followup is needed. 3. Infiltrates medial segment right middle lobe. 4. Severe pulmonary emphysema. VTE proph: Heparin, SCD Dispo: 1-2 days pending.
--- NOTE | 2017-04-21 14:33 | CR ---
EXAM DATE: 04/20/17 PATIENT'S AGE: 61 Patient: MARIELENA SMALLS Facility: [place], [place] Site . Site : [id number] Study: XRay Chest [id number]/[id number] 1:16:50 PM Ordering Physician: Eavristo Chacko Final Report: HISTORY: Pain and shortness of breath. COMPARISON: 07/11/2016. FINDINGS: Patchy airspace opacities in the right lower lobe may represent pneumonia. Heart size and pulmonary vascularity are within normal limits. Dictated by Marla Bhakta MD @ Apr 20 2017 2:08PM (Electronic Signature) Report Signed by Proxy. BERTHA
--- NOTE | 2017-04-21 14:48 | CT ---
EXAM DATE: 04/20/17 PATIENT'S AGE: 61 Patient: MARIELENA SMALLS Facility: [place], [place] Site . Site : [id number] Study: CT Chest Angio [id number] 2:51:28 PM Ordering Physician: Evaristo Chacko Final Report: INDICATION: Chest pain; shortness of breath; abnormal chest x-ray. COMPARISON: Chest radiograph April 20, 2017; July 11, 2016. TECHNIQUE: CT chest with intravenous contrast; coronal and sagittal reformats. Findings: No CT evidence of acute or chronic pulmonary thromboembolism. Consolidation right lower lobe; rule out pneumonic infiltrates. This need to be followed until it completely clears to rule out underlying malignancy. 2.7 x 1.4 cm spiculated nodular density upper lobe left lung; malignancy need to be considered and ruled out. No other abnormal intra pulmonary nodular densities in the left lung. 8 mm pleural-based noncalcified nodular density right middle lobe as noted on slice 64 of series 1502 and an 8 mm nodular density lateral segment right middle lobe on slice 65 of series 1502. Diffuse pulmonary emphysema with bullous disease. Infiltrates lateral segment right middle lobe. No abnormal mediastinal or hilar lymphadenopathy. Normal size cardiac silhouette without any evidence of pericardial effusion. Limited CT through the upper abdomen is unremarkable. Impression: Pneumonic infiltrates right lower lobe; area of spiculated soft tissue measuring 4.4 x 2.5 cm in the middle of the infiltrate; close followup is needed until it completely clears to rule out underlying malignancy. 1. 2.7 x 1.4 cm spiculated nodular density left upper lung; rule out malignancy ; close followup and / or further imaging with PET CT suggested. 2. Sub cm spiculated nodules right middle lobe; close followup is needed. 3. Infiltrates medial segment right middle lobe. 4. Severe pulmonary emphysema. Please note that all CT scans at this facility use dose modulation, iterative reconstruction, and/or weight-based dosing when appropriate to reduce radiation dose to as low as reasonably achievable. Dictated by Lissy Burton MD @ Apr 20 2017 3:13PM (Electronic Signature) Report Signed by Proxy. BERTHA
[2017-04-21] MEDS: Levofloxacin/Dextrose 5%-Water 750 MG in Premix Bag 1 BAG IV SCH (15:28)
[2017-04-22] MEDS: Heparin Sodium 5,000 Units/ML Vial SUBCUT SCH (03:32)
[2017-04-22] MEDS: methylPREDNISolone Sodium Succinate 40 MG/1 ML SDV IVPUSH SCH (03:34)
[2017-04-22 05:40] LABS: CHLORIDE,CL 108 mmol/L (98-110); SODIUM,NA 141 mmol/L (136-146)
[2017-04-22] MEDS ORDERED: methylPREDNISolone Sodium Succinate 125 MG/2 ML SDV IVPUSH SCH (07:30)
[2017-04-22] MEDS ORDERED: Cetirizine 10 MG Tab PO SCH (09:00)
[2017-04-22] MEDS ORDERED: BUDESONIDE INH SCH (09:00)
[2017-04-22] MEDS ORDERED: FORMOTEROL INH SCH (09:00)
[2017-04-22] MEDS ORDERED: Albuterol 0.083% 2.5 MG/3 ML Neb Soln NEB SCH (10:00)
--- NOTE | 2017-04-22 11:25 | PCM.DCSUM1 ---
Discharge Summary - Hospital Course Brief History: 61-year-old female presenting to emergency department with chief complaint of increasing shortness of breath 1 week with past medical history of COPD on home oxygen 2 L and lung CA. Patient states that for the past week she has had increased shortness of breath. She does use oxygen at home and was finding that she was needing more to feel not winded. States that she has felt some fever and chills but denies any nausea, vomiting, diarrhea. She does have a history of COPD and lung CA. States that she has had radiation for the Lung CA but secondary to her emphysematous changes they have not been able to do a biopsy to get a proper tissue diagnosis. She also has been recently ill with influenza which she was treated for 2 weeks ago. She currently denies any chest pain, palpitations, syncopal episodes, or focal neurologic deficits. In the ED she had mild leukocytosis of 11.7 K, elevated d-dimer at 1.48 most likely secondary to lung cancer. CTA was performed and was found to be negative for PE. Lactate and CMP were unremarkable. Troponin was negative. EKG showed no acute scigns of ischemia. Chest x-ray revealed patchy airspace opacities in the right lower lobe possibly representing a pneumonia. In the emergency department she was treated with duo nebs and IV Solu-Medrol 125. She was satting 94% on 4 L. She normally uses 2 L at home. CTA of Chest 04/20/17. No CT evidence of acute or chronic pulmonary thromboembolism. Consolidation right lower lobe; rule out pneumonic infiltrates. This need to be followed until it completely clears to rule out underlying malignancy. 2.7 x 1.4 cm spiculated nodular density upper lobe left lung; malignancy need to be considered and ruled out. No other abnormal intra pulmonary nodular densities in the left lung. 8 mm pleural-based noncalcified nodular density right middle lobe as noted on slice 64 of series 1502 and an 8 mm nodular density lateral segment right middle lobe on slice 65 of series 1502. Diffuse pulmonary emphysema with bullous disease. Infiltrates lateral segment right middle lobe. No abnormal mediastinal or hilar lymphadenopathy. Normal size cardiac silhouette without any evidence of pericardial effusion. Limited CT through the upper abdomen is unremarkable. Impression: Pneumonic infiltrates right lower lobe; area of spiculated soft tissue measuring 4.4 x 2.5 cm in the middle of the infiltrate; close followup is needed until it completely clears to rule out underlying malignancy. 1. 2.7 x 1.4 cm spiculated nodular density left upper lung; rule out malignancy; close followup and / or further imaging with PET CT suggested. 2. Sub cm spiculated nodules right middle lobe; close followup is needed. 3. Infiltrates medial segment right middle lobe. 4. Severe pulmonary emphysema. Patient does have a history of anaphylactic reaction to codeine. Patient will be admitted for hypoxia secondary to pneumonia and COPD exacerbation. - Discharge Data Discharge Date: 04/22/17 Discharge Disposition: Home, Self-Care 01 Condition: Good - Patient Instructions Diet: Regular Diet as Tolerated - Discharge Plan Prescriptions/Med Rec: Levofloxacin [Levaquin] 750 mg PO DAILY #4 tab Prednisone [IJD: Prednisone] 10 mg PO DAILY #84 tab Home Medications: Home Meds Cetirizine HCl [Zyrtec] 10 mg PO DAILY 08/02/13 [History] Albuterol [Ventolin HFA] 108 mg PO DAILY 04/20/17 [History] Budesonide/Formoterol [Symbicort 160-4.5 MCG] 10.2 gm INH DAILY 04/20/17 [ History] Umeclidinium Otis [Incruse Ellipta*] 62.5 ml PO DAILY 04/20/17 [History] Albuterol Sulfate 0.083 ml PO Q4H #0 04/22/17 [Rx] Levofloxacin [Levaquin] 750 mg PO DAILY #4 tab 04/22/17 [Rx] Prednisone [IJD: Prednisone] 10 mg PO DAILY #84 tab 04/22/17 [Rx] Referrals: Mak Ash MD [Physician] - 05/01/17 3:30 pm - Discharge Summary/Plan Comment DC Time >30 min.: No Discharge Summary/Plan Comment: Discharge Diagnoses; CAP COPD exacerbation Hypoxia-resolved HX COPD, oxygen dependent 2 L NC Lung cancer Evelyn was admitted and treated with IV Solumedrol and Duonebs. She slowly improved and oxygen has been weaned down to home 2 L NC. She is continuing to cough scant amounts but this is improving. She is less dyspneic with ambulation and is feeling like she is ready to be discharged home today. Lung sounds are more clear today, no wheezing noted. She again is on her 2 L NC sating mid 90s and doing well. Sputum culture is pending, BC and influenza were negative. She will be sent home today with continuing all her home inhalers and nebulizers as previously prescribed. She will be given Levaquin for total of 7 day treatment and long steroid taper due to her dypsnea prior to admission for the last 3 weeks. She will be scheduled to see Dr Ash as outpatient for follow up. She is to return to ED or clinic if concerns should arise. She was congratulated on smoking cessation and daughter was urged to stop as well. - General Info Date of Service: 04/22/17 Admission Dx/Problem (Free Text: Pneumonia Subjective Update: Doing well this morning, sitting on the edge of the bed requesting discharge home. She is feeling better less dyspnea today and no chest pain. Coughing has improved. Functional Status: Reports: Pain Controlled, Tolerating Diet, Ambulating, Urinating - Review of Systems HEENT: Reports: No Symptoms. Denies: Headaches, Sore Throat, Visual Changes Pulmonary: Reports: Shortness of Breath (much improved, near baseline), Cough. Denies: Hemoptysis, Wheezing Cardiovascular: Reports: No Symptoms. Denies: Chest Pain, Palpitations, Lightheadedness Gastrointestinal: Reports: No Symptoms. Denies: Abdominal Pain, Nausea, Vomiting Genitourinary: Reports: No Symptoms. Denies: Dysuria, Frequency, Burning Musculoskeletal: Reports: No Symptoms. Denies: Neck Pain Neurological: Reports: No Symptoms. Denies: Confusion Psychiatric: Reports: No Symptoms. Denies: Confusion - Patient Data Vitals - Most Recent: Last Vital Signs Temp 98.8 F 04/22/17 08:00 Pulse 91 04/22/17 08:00 Resp 20 04/22/17 08:00 BP 132/78 04/22/17 08:00 Pulse Ox 94 L 04/22/17 08:00 Weight - Most Recent: 71.5 kg I&O - Last 24 hours: Intake & Output 04/21/17 04/22/17 04/22/17 22:59 06:59 14:59 Intake Total 2700 900 Output Total 2920 2250 Balance -220 -1350 Lab Results - Last 24 hrs: Laboratory Results - last 24 hr 04/22/17 04/22/17 Range/Units 04:48 04:48 WBC 12.86 H (4.0-11.0) K/uL RBC 3.55 L (4.30-5.90) M/uL Hgb 10.6 L (12.0-16.0) g/dL Hct 32.6 L (36.0-46.0) % MCV 91.8 (80.0-98.0) fL MCH 29.9 (27.0-32.0) pg MCHC 32.5 (31.0-37.0) g/dL RDW Std Deviation 45.9 (28.0-62.0) fl RDW Coeff of Olga 14 (11.0-15.0) % Plt Count 294 (150-400) K/uL MPV 10.10 (7.40-12.00) fL Neut % (Auto) 89.7 H (48.0-80.0) % Lymph % (Auto) 7.3 L (16.0-40.0) % Evangeline % (Auto) 3.0 (0.0-15.0) % Eos % (Auto) 0.0 (0.0-7.0) % Baso % (Auto) 0.0 (0.0-1.5) % Neut # (Auto) 11.5 H (1.4-5.7) K/uL Lymph # (Auto) 0.9 (0.6-2.4) K/uL Evangeline # (Auto) 0.4 (0.0-0.8) K/uL Eos # (Auto) 0.0 (0.0-0.7) K/uL Baso # (Auto) 0.0 (0.0-0.1) K/uL Nucleated RBC % 0.0 /100WBC Nucleated RBCs # 0 K/uL Sodium 141 (136-146) mmol/L Potassium 4.4 (3.5-5.1) mmol/L Chloride 108 (98-110) mmol/L Carbon Dioxide 24 (21-31) mmol/L BUN 18 (6.0-23.0) mg/dL Creatinine 0.6 (0.6-1.5) mg/dL Est Cr Clr Drug Dosing 93.34 mL/min Estimated GFR (MDRD) > 60.0 ml/min Glucose 148 H (60-110) mg/dL Calcium 8.8 (8.8-10.8) mg/dL ROBBY Results - Last 24 hrs: Microbiology 04/21/17 09:46 Gram Stain - Preliminary Sputum - Expectorated Med Orders - Current: Current Medications Acetaminophen (Tylenol) 650 mg PO Q4H PRN PRN Reason: Pain (Mild 1-3)/fever Albuterol (Proventil Neb Soln) 2.5 mg NEB Q4HRRT [facility] Last Admin: 04/22/17 10:16 Dose: 2.5 mg Albuterol/Ipratropium (Duoneb 3.0-0.5 Mg/3 Ml) 3 ml NEB Q4HRRT PRN PRN Reason: Shortness Of Breath/wheezing Cetirizine HCl (Zyrtec) 10 mg PO DAILY [facility] Last Admin: 04/22/17 08:52 Dose: 10 mg Heparin Sodium (Porcine) (Heparin Sodium) 5,000 units SUBCUT Q12H [facility] Last Admin: 04/22/17 03:32 Dose: 5,000 units Ibuprofen (Motrin) 400 mg PO Q6H PRN PRN Reason: Pain (mild 1-3) Levofloxacin (Levaquin) 750 mg PO Q24H [facility] Ondansetron HCl (Zofran Odt) 4 mg PO Q4H PRN PRN Reason: nausea, able to take PO Budesonide/Formoterol 10.2 Gm ( Symbicort 160-4.5 Mcg) 1 Puff 1 each INH DAILY [facility] Last Admin: 04/22/17 08:52 Dose: 1 each Umeclidinium Otis (Incruse Ellipta) 1 Puff 1 each PO DAILY [facility] Last Admin: 04/22/17 08:52 Dose: 1 each Sodium Chloride (Saline Flush) 10 ml FLUSH ASDIRECTED PRN PRN Reason: Keep Vein Open Last Admin: 04/20/17 12:44 Dose: 10 ml Sodium Chloride (Saline Flush) 2.5 ml FLUSH ASDIRECTED PRN PRN Reason: Keep Vein Open Last Admin: 04/20/17 12:44 Dose: 2.5 ml Discontinued Medications Albuterol/Ipratropium (Duoneb 3.0-0.5 Mg/3 Ml) 3 ml NEB ONETIME ONE Stop: 04/20/17 12:38 Last Admin: 04/20/17 12:41 Dose: 3 ml Albuterol/Ipratropium (Duoneb 3.0-0.5 Mg/3 Ml) 3 ml NEB ONETIME ONE Stop: 04/20/17 12:45 Last Admin: 04/20/17 12:47 Dose: 3 ml Albuterol/Ipratropium (Duoneb 3.0-0.5 Mg/3 Ml) 3 ml NEB ONETIME ONE Stop: 04/20/17 12:46 Last Admin: 04/20/17 13:06 Dose: 3 ml Lactated Ringer's (Ringers, Lactated) 1,000 mls @ 125 mls/hr IV ASDIRECTED [facility] Last Admin: 04/21/17 09:42 Dose: 125 mls/hr Levofloxacin/Dextrose 750 mg/ (Premix) 150 mls @ 100 mls/hr IV Q24H [facility] Last Admin: 04/21/17 15:28 Dose: 100 mls/hr Iopamidol (Isovue-370 (76%)) 50 ml IV ONETIME ONE Stop: 04/20/17 16:10 Last Admin: 04/20/17 16:10 Dose: 50 ml Methylprednisolone Sodium Succinate (Solu-Medrol) 125 mg IVPUSH ONETIME ONE Stop: 04/20/17 12:38 Last Admin: 04/20/17 12:44 Dose: 125 mg Methylprednisolone Sodium Succinate (Solu-Medrol) 60 mg IVPUSH Q6H [facility] Last Admin: 04/22/17 03:34 Dose: 60 mg Methylprednisolone Sodium Succinate (Solu-Medrol) 60 mg IVPUSH Q6H [facility] Last Admin: 04/22/17 08:53 Dose: 60 mg - Exam General: Reports: Alert, Oriented, Cooperative, No Acute Distress Neck: Reports: Supple Lungs: Reports: Clear to Auscultation, Normal Respiratory Effort, Other (2 L NC) Cardiovascular: Reports: Regular Rate, Regular Rhythm GI/Abdominal Exam: Normal Bowel Sounds, Soft, Non-Tender, No Organomegaly, No Distention, No Abnormal Bruit, No Mass, Pelvis Stable Extremities: Normal Inspection, Normal Range of Motion, Non-Tender, No Pedal Edema, Normal Capillary Refill Neurological: Reports: No New Focal Deficit Psy/Mental Status: Reports: Alert, Normal Affect, Normal Mood *Q Meaningful Use (DIS) - VTE *Q VTE Criteria *Q: - Stroke *Q Stroke Criteria *Q: - AMI *Q AMI Criteria *Q:
[2017-04-22] MEDS ORDERED: Levofloxacin 250 MG Tab PO SCH (11:30)
== END 2017-04-22 12:45 | disposition home or self-care (01) | DRG 144 ==
LOC: MW.ED 12:24 → MW.MS 15:00 → UNDOADMIN 15:00
PROVIDERS: ADMIT Family Medicine; ATTEND Family Medicine
DX: R09.02 Hypoxemia (principal); J18.9 Pneumonia, unspecified organism; J44.1 Chronic obstructive pulmonary disease with (acute) exacerbation; C34.90 Malignant neoplasm of unspecified part of unspecified bronchus or lung; Z99.81 Dependence on supplemental oxygen; Z88.8 Allergy status to other drugs, medicaments and biological substances; Z79.899 Other long term (current) drug therapy; Z87.891 Personal history of nicotine dependence
CPT/HCPCS: 36415; 71045; 71045-26; 71275; 71275-26; 80048; 80053; 83605; 83735; 83880; 84484; 85025; 85379; 87040; 87070; 87205; 87804; 93005; 94640; 96374; 99284; 99285-25; A9270-GY; J1644; J1956; J2920; J2930; J7120; Q9967

== ENCOUNTER 2021-05-21 20:58 | Inpatient (IN) | payer MEDICARE, MEDICAID ==
[2021-05-21] MEDS ORDERED: methylPREDNISolone Sodium Succinate 125 MG/2 ML SDV IVPUSH ONE (21:23)
[2021-05-21] MEDS ORDERED: Albuterol/Ipratropium 3.0-0.5 MG/3 ML Neb Soln NEB ONE ×2 (21:23→23:09)
[2021-05-21] MEDS ORDERED: Sodium Chloride 0.9% 1,000 ML IV SCH (21:30)
[2021-05-21 22:46] LABS: BLOOD UREA NITROGEN,BUN 10 mg/dL (7.0-18.0); CARBON DIOXIDE,CO2 30.1 mmol/L (21.0-32.0); CHLORIDE,CL 98 mmol/L (98-107); ESTIMATED GFR > 60.0 ml/min; GLUCOSE RANDOM 182 mg/dL (74-106); SODIUM,NA 138 mmol/L (136-145)
[2021-05-21 22:49] LABS: CORONAVIRUS COVID-19 NAA NEGATIVE (NEGATIVE); INFLUENZA A NAA NEGATIVE (NEGATIVE); INFLUENZA B NAA NEGATIVE (NEGATIVE)
[2021-05-22] MEDS ORDERED: Acetaminophen 325 MG Tab PO PRN (00:45)
[2021-05-22] MEDS ORDERED: Lactated Ringers 1,000 ML IV SCH ×3 (00:45→11:45)
[2021-05-22] MEDS ORDERED: Ondansetron 4 MG/2 ML SDV IVPUSH PRN (00:45)
[2021-05-22] MEDS: Albuterol/Ipratropium 3.0-0.5 MG/3 ML Neb Soln NEB SCH ×4 (02:01→14:10)
[2021-05-22] MEDS ORDERED: Diltiazem 25 MG/5 ML SDV IVPUSH ONE ×2 (03:03→15:47)
[2021-05-22] MEDS ORDERED: Lactated Ringers 1,000 ML IV ONE (03:57)
[2021-05-22] MEDS: methylPREDNISolone Sodium Succinate 40 MG/1 ML SDV IVPUSH SCH ×2 (05:33→14:57)
[2021-05-22 06:40] LABS: BLOOD UREA NITROGEN,BUN 9 mg/dL (7.0-18.0); CARBON DIOXIDE,CO2 27.1 mmol/L (21.0-32.0); CHLORIDE,CL 104 mmol/L (98-107); ESTIMATED GFR > 60.0 ml/min; GLUCOSE RANDOM 192 mg/dL (74-106); POTASSIUM,K 4.1 mmol/L (3.5-5.1); SODIUM,NA 141 mmol/L (136-145)
[2021-05-22] MEDS ORDERED: Sodium Chloride 0.9% 2.5 ML Syringe FLUSH PRN (08:12)
[2021-05-22] MEDS ORDERED: Sodium Chloride 0.9% 10 ML Syringe FLUSH PRN (08:12)
[2021-05-22] MEDS ORDERED: Nystatin Susp 100,000 Unit/ML 5 ML UD Cup PO SCH (09:00)
[2021-05-22] MEDS ORDERED: Enoxaparin 40 MG/0.4 ML Syringe SUBCUT SCH (09:00)
[2021-05-22] MEDS ORDERED: Metoprolol Tartrate 25 MG Tab PO SCH ×2 (09:00→18:00)
[2021-05-22] MEDS ORDERED: Pantoprazole 40 MG in Sodium Chloride 0.9% 10 ML IVPUSH SCH (09:00)
[2021-05-22] MEDS: LIDOCAINE PO SCH ×6 (09:03→19:28)
[2021-05-22] MEDS: NYSTATIN PO SCH ×6 (09:03→19:28)
[2021-05-22] MEDS ORDERED: Azithromycin 250 MG Tab PO SCH (10:45)
[2021-05-22] MEDS ORDERED: Albuterol/Ipratropium 3.0-0.5 MG/3 ML Neb Soln NEB ONE (15:21)
[2021-05-22] MEDS ORDERED: Budesonide 0.5 MG/2 ML Neb Susp ONE (15:27)
[2021-05-22] MEDS ORDERED: Albuterol 0.083% 2.5 MG/3 ML Neb Soln ONE (15:27)
[2021-05-22] MEDS ORDERED: LORazepam 2 MG/ML SDV IVPUSH ONE (16:13)
[2021-05-22] MEDS ORDERED: Aspirin 81 MG Tab.Chew PO ONE (17:16)
[2021-05-22] MEDS ORDERED: Aspirin 325 MG Tab ONE (17:18)
[2021-05-22] MEDS ORDERED: Heparin Sodium 5,000 Units/ML Vial ONE (17:23)
[2021-05-22] MEDS ORDERED: Heparin Sodium/0.45% NaCl 500 ML ONE (17:23)
[2021-05-22] MEDS ORDERED: Heparin Sodium 5,000 Units/ML Vial IVPUSH ONE (17:34)
[2021-05-22] MEDS ORDERED: Heparin Sodium/0.45% NaCl 500 ML IV SCH (17:45)
[2021-05-22] MEDS ORDERED: Ipratropium 0.02% 0.5 MG/2.5 ML Neb Soln ONE (18:20)
== END 2021-05-22 18:55 | DRG 189 ==
LOC: MW.ED 20:58 → MW.MS 05-22 00:13 → MW.ICU 05-22 17:24
PROVIDERS: ADMIT Student in an Organized Health Care Education/Training Program; ATTEND Student in an Organized Health Care Education/Training Program
PROC: 5A09357 Assistance with Respiratory Ventilation, Less than 24 Consecutive Hours, Continuous Positive Airway Pressure (ICD-10-PCS; principal; 2021-05-22)
DX: J44.1 Chronic obstructive pulmonary disease with (acute) exacerbation (principal); R09.02 Hypoxemia; J96.22 Acute and chronic respiratory failure with hypercapnia; B37.0 Candidal stomatitis; J96.21 Acute and chronic respiratory failure with hypoxia; R00.0 Tachycardia, unspecified; Z20.822 Contact with and (suspected) exposure to COVID-19; Z79.899 Other long term (current) drug therapy; J43.9 Emphysema, unspecified; M19.90 Unspecified osteoarthritis, unspecified site; M85.80 Other specified disorders of bone density and structure, unspecified site; Z85.118 Personal history of other malignant neoplasm of bronchus and lung; Z86.19 Personal history of other infectious and parasitic diseases; Z87.891 Personal history of nicotine dependence; Z91.040 Latex allergy status; Z88.5 Allergy status to narcotic agent; R77.8 Other specified abnormalities of plasma proteins
CPT/HCPCS: 0240U; 36415; 36600; 51702; 71045; 80048; 80053; 82803; 84484; 85025; 85730; 93005; 94640; 94660; 93010; 96374; 99236; 99284-25; 99285; A9270-GY; C9113; J1644; J1650; J2060; J2920; J2930; J3490; J7030; J7120; J7620-GY